=== PATIENT | male | born 1940 | race Caucasian/White ===

== ENCOUNTER → 2018-02-04 | Outpatient (CLI) | payer MEDICARE, OTHER ==
[~2018-02-04] MED LIST: ALL100 PO; ASCO-191 PO; GLUC-125 PO; VIT-9 PO; VITA400T2 PO
--- NOTE | 2018-02-06 14:17 | RT HOLTER TEST ---
FACILITY: [facility] - [place] PATIENT NAME: CLARISSE RUBIO : [id number] MR: [id number] V: [id number] EXAM DATE: ORDERING PHYSICIAN: CHANDRIKA DELEON TECHNOLOGIST: SAMMY Hook-up date: 2018-02-04 13:32:00 Duration: 47:40:00 Test Indications: Christiano Medications: none [id number] QRS complexes 99954 Ventricular ectopics which represent 25 % of total QRS comp. 81 Supraventricular ectopics which represent <1 % of total QRS comp. * Paced QRS complexes which represent % of total QRS comp. VENTRICULAR ECTOPY 09482 Isolated 5563 Bigeminal Cycles 2649 Couplets 258 Runs 795 Beats in Runs 6 Beats LONGEST at 127 BPM at 13:38:01 2018-02-04 3 Beats FASTEST at 185 BPM at 16:28:09 2018-02-05 SUPRAVENTRICULAR ECTOPY 66 Isolated 5 Couplets 1 Runs 5 Beats in Runs 5 Beats LONGEST at 145 BPM at 09:15:33 2018-02-06 5 Beats FASTEST at 145 BPM at 09:15:33 2018-02-06 HEART RATES 43 MIN at 07:21:10 2018-02-06 76 AVG 119 MAX at 16:34:03 2018-02-05 LONGEST RR 1.864 secs at 07:21:04 2018-02-06 S-T LEVELS Channel 1 -12.800 mm MIN at 13:32:00 2018-02-04 -12.800 mm MAX at 13:32:00 2018-02-04 Channel 2 -12.800 mm MIN at 13:32:00 2018-02-04 -12.800 mm MAX at 13:32:00 2018-02-04 Channel 3 -12.800 mm MIN at 13:32:00 2018-02-04 -12.800 mm MAX at 13:32:00 2018-02-04 Maximum heart rate was sinus tachycardia with frequent PVCs at 119 beats per minute (BPM). Minimum he art rate was sinus bradycardia at 43 BPM. There were 48,643 isolated PVCs, 2,649 couplets and 3 runs of ventricular tachycardia, with longest run be ing 6 beats. There were 66 isolated PACs with 5 couplets and one 5 beat run. Confirmed by VESNA FELIX ([id number]) on 02/06/2018 2:16:24 PM Referred By: Overread By: VESNA FELIX
== END ==
LOC: RESP 01:53
PROVIDERS: ATTEND Family Medicine
DX: R00.1 Bradycardia, unspecified (principal)
CPT/HCPCS: 93225; 93226

== ENCOUNTER → 2018-02-10 | Outpatient (CLI) | payer MEDICARE, OTHER | LOC: US 07:00 | PROVIDERS: ATTEND Family Medicine | DX: I50.30 Unspecified diastolic (congestive) heart failure (principal); Q21.0 Ventricular septal defect | CPT/HCPCS: C8929; Q9957 ==

== ENCOUNTER → 2018-03-10 | Outpatient (REF) | payer MEDICARE, OTHER | LOC: ZZSENDIN 10:54 | PROVIDERS: ATTEND Family Medicine | DX: R06.02 Shortness of breath (principal) | CPT/HCPCS: 83880 ==

== ENCOUNTER → 2018-04-20 | Outpatient (CLI) | payer MEDICARE, OTHER | LOC: LAB 09:09 | PROVIDERS: ATTEND Internal Medicine Cardiovascular Disease | DX: I49.3 Ventricular premature depolarization (principal); R06.02 Shortness of breath | CPT/HCPCS: 36415; 82310; 82374; 82435; 82565; 82947; 84132; 84295; 84520; 85027 ==

== ENCOUNTER → 2019-01-11 | Outpatient (CLI) | payer MEDICARE, OTHER ==
[2019-01-11 09:29] LABS: LDL CHOLESTEROL 113 mg/dl
== END ==
LOC: LAB 08:36
PROVIDERS: ATTEND Internal Medicine Cardiovascular Disease
DX: I25.10 Atherosclerotic heart disease of native coronary artery without angina pectoris (principal)
CPT/HCPCS: 36415; 82040; 82247; 82310; 82374; 82435; 82465; 82565; 82947; 83718; 84075; 84132; 84155; 84295; 84450; 84460; 84478; 84520

== ENCOUNTER → 2019-01-28 | Outpatient (CLI) | payer MEDICARE, OTHER | LOC: US 01-25 13:19 | PROVIDERS: ATTEND Internal Medicine Cardiovascular Disease | DX: I50.1 Left ventricular failure, unspecified (principal); I25.10 Atherosclerotic heart disease of native coronary artery without angina pectoris | CPT/HCPCS: 93306 ==

== ENCOUNTER → 2019-03-01 | Outpatient (CLI) | payer MEDICARE, OTHER ==
--- NOTE | 2019-03-04 06:10 | RT HOLTER TEST ---
FACILITY: [facility] [place] PATIENT NAME: CLARISSE RUBIO : [id number] MR: [id number] V: [id number] EXAM DATE: ORDERING PHYSICIAN: HEATHER WHITE TECHNOLOGIST: Ge Pagan-pedro date: 2019-03-01 10:28:00 Duration: 47:59:00 Test Indications: BRADYCARDIA Medications: Allopurinol Carvedidol Spironolacton Asprin [id number] QRS complexes 45853 Ventricular ectopics which represent 20 % of total QRS comp. 172 Supraventricular ectopics which represent <1 % of total QRS comp. * Paced QRS complexes which represent % of total QRS comp. VENTRICULAR ECTOPY 75220 Isolated 2200 Bigeminal Cycles 3364 Couplets 171 Runs 516 Beats in Runs 4 Beats LONGEST at 130 BPM at 17:28:27 2019-03-01 3 Beats FASTEST at 192 BPM at 11:00:09 2019-03-02 SUPRAVENTRICULAR ECTOPY 118 Isolated 11 Couplets 9 Runs 32 Beats in Runs 5 Beats LONGEST at 124 BPM at 23:32:41 2019-03-01 3 Beats FASTEST at 153 BPM at 10:39:17 2019-03-01 HEART RATES 40 MIN at 02:04:21 2019-03-02 67 AVG 121 MAX at 14:14:46 2019-03-02 LONGEST RR 1.984 secs at 02:04:14 2019-03-02 S-T LEVELS Channel 1 -12.800 mm MIN at 10:28:00 2019-03-01 -12.800 mm MAX at 10:28:00 2019-03-01 Channel 2 -12.800 mm MIN at 10:28:00 2019-03-01 -12.800 mm MAX at 10:28:00 2019-03-01 Channel 3 -12.800 mm MIN at 10:28:00 2019-03-01 -12.800 mm MAX at 10:28:00 2019-03-01 Sinus rhythm Sinus bradycardia Premature ventricular complexes in a pattern of bigeminy Couplets and Consecutive Premature ventricular complexes Confirmed by CHANDRIKA TRIANA ([id number]) on 03/04/2019 6:08:32 AM Referred By: Overread By: CHANDRIKA TRIANA
== END ==
LOC: RESP 07:49
PROVIDERS: ATTEND Internal Medicine Cardiovascular Disease
DX: I42.0 Dilated cardiomyopathy (principal); I25.10 Atherosclerotic heart disease of native coronary artery without angina pectoris; I49.3 Ventricular premature depolarization
CPT/HCPCS: 93225; 93226

== ENCOUNTER → 2019-04-05 | Outpatient (CLI) | payer MEDICARE, OTHER | LOC: LAB 10:37 | PROVIDERS: ATTEND Internal Medicine Cardiovascular Disease | DX: I25.10 Atherosclerotic heart disease of native coronary artery without angina pectoris (principal); I42.0 Dilated cardiomyopathy; I49.3 Ventricular premature depolarization | CPT/HCPCS: 36415; 82310; 82374; 82435; 82565; 82947; 84132; 84295; 84443; 84520 ==